=== PATIENT | male | born 1990 | race Two or more races ===

== ENCOUNTER 2018-04-09 18:39 | Emergency (ER) | payer OTHER ==
--- NOTE | 2018-04-09 19:32 | ED ---
Complex/Multi-Sys Presentation - HPI Summary HPI Summary: 27 y/o male BIBA c/o sudden onset episode of weakness and dizziness earlier today, resolved spontaneously. Associated sx: lightheadedness, syncope. Pt was doing sprints at around 17:00 today and began feeling dizzy. Pt states he did not drink enough water. Denies recent illness. PMHx ADD. Pt's sx currently resolved. - History Of Current Complaint Chief Complaint: EDExposureHeatCold Time Seen by Provider: 04/09/18 19:09 Hx Obtained From: Patient Onset/Duration: Sudden Onset Location: Negative Associated Signs And Symptoms: Positive: Dizziness, Weakness, Syncope, Other - hands tingling, lightheadedness - Allergies/Home Medications Allergies/Adverse Reactions: Allergies Allergy/AdvReac Type Severity Reaction Status Date / Time Tree Nuts Allergy Hives/Diff. Verified 04/09/18 18:48 Breathing/I tching Home Medications: Home Medications Methylphenidate HCl [Methylphenidate HCl ER] 54 mg PO DAILY 04/09/18 [History Confirmed 04/09/18] PMH/Surg Hx/FS Hx/Imm Hx Previously Healthy: No Endocrine/Hematology History: Denies: Hx Diabetes Cardiovascular History: Denies: Hx Hypertension, Hx Pacemaker/ICD History: Denies: Hx Renal Disease Sensory History: Denies: Hx Hearing Aid Psychiatric History: Denies: Hx Panic Disorder - Surgical History Surgery Procedure, Year, and Place: WISDOM TEETH EXTRACTION; Infectious Disease History: No Infectious Disease History: Denies: Traveled Outside the [place] in Last 30 Days - Family History Known Family History: Positive: Unknown - Social History Alcohol Use: Occasionally Hx Substance Use: No Substance Use Type: Reports: None Hx Tobacco Use: No Smoking Status (MU): Never Smoked Tobacco Review of Systems Negative: Fever, Chills Negative: Erythema Negative: Sore Throat Negative: Chest Pain Negative: Shortness Of Breath, Cough Negative: Abdominal Pain, Vomiting, Nausea Negative: dysuria, hematuria Negative: Myalgia, Edema Negative: Rash Neurological: Other - dizziness, lightheadedness Positive: Weakness, Syncope All Other Systems Reviewed And Are Negative: Yes Physical Exam - Summary Physical Exam Summary: Constitutional: Well-developed, Well-nourished, Alert. (-) Distressed Skin: Warm, Dry HENT: Normocephalic; Atraumatic Eyes: Conjunctiva normal Neck: Musculoskeletal ROM normal neck. (-) JVD, (-) Stridor, (-) Tracheal deviation Cardio: Rhythm regular, rate normal, Heart sounds normal; Intact distal pulses; The pedal pulses are 2+ and symmetric. Radial pulses are 2+ and symmetric. (-) Murmur Pulmonary/Chest wall: Effort normal. (-) Respiratory distress, (-) Wheezes, (-) Rales Abd: Soft, (-), epigastric tenderness, (-) Distension, (-) Guarding, (-) Rebound Musculoskeletal: (-) Edema Lymph: (-) Cervical adenopathy Neuro: Alert, Oriented x3 Psych: Mood and affect Normal Triage Information Reviewed: Yes Vital Signs On Initial Exam: Initial Vitals Temp Pulse Resp BP Pulse Ox 98.7 F 81 11 133/73 98 04/09/18 18:45 04/09/18 18:45 04/09/18 18:45 04/09/18 18:45 04/09/18 18:45 Vital Signs Reviewed: Yes Diagnostics - Vital Signs Vital Signs Temp Pulse Resp BP Pulse Ox 04/09/18 18:45 98.7 F 81 11 133/73 98 - Laboratory Result Diagrams: 04/09/18 19:47 04/09/18 19:47 Lab Statement: Any lab studies that have been ordered have been reviewed, and results considered in the medical decision making process. Complex Multi-Symp Course/Dx Assessment/Plan: Highly suspicious for dehydration and heat exhaustion. Pt has been sleeping 4 hrs a night, did not drink much today, and has undergone recent stress. - Diagnoses Provider Diagnoses: Heat exhaustion Discharge - Discharge Plan Condition: Stable Disposition: HOME Patient Education Materials: Heat Exhaustion (ED) Referrals: [facility] - Aristeo HOLLAND [Medical Doctor] - 2 Days (PLEASE F/U IN 1-2 DAYS)
[2018-04-09] MEDS ORDERED: NS 0.9% 1000 ML* 2,000 ML IV ONE (19:40)
[2018-04-09 19:53] LABS: Hematocrit 43 % (42-52); Hemoglobin 14.2 g/dl (14.0-18.0); Mean Corpuscular HGB Conc 34 g/dl (31-36); Mean Corpuscular Hemoglobin 29 pg (27-31); Mean Corpuscular Volume 86 fL (80-94); Mean Platelet Volume 7.1 um3 (7.4-10.4); Platelet Count 328 10^3/ul (150-450); Red Blood Count 4.92 10^6/ul (4.00-5.40); Red Cell Distribution Width 13 % (10.5-15); White Blood Count 16.2 10^3/ul (3.5-10.8)
[2018-04-09 22:17] VITALS: BP 118/71
== END 2018-04-09 22:16 | disposition home or self-care (01) ==
LOC: ED 18:39
DX: T67.5XXA Heat exhaustion, unspecified, initial encounter (principal); X30.XXXA Exposure to excessive natural heat, initial encounter; Y92.9 Unspecified place or not applicable
CPT/HCPCS: 36415; 80053; 82550; 85027; 99283